=== PATIENT | male | born 1960 | race Caucasian/White ===

== ENCOUNTER 2016-07-06 16:19 | Emergency (ER) | payer OTHER, MEDICARE ==
[~2016-07-06] VITALS: Ht 157.5 cm; Wt 65.8 kg
[~2016-07-06 16:19] MED LIST: AMARYL4 M1 PO; AMLODIPINE BESY10 M1 PO; ARIPIPRAZOLE5 M1 PO; ATORVASTATIN CA10 M1 PO; BISCOLAX10 M1 PR; CAL-GEST200 MG PO; CRESTOR5 M1 PO; DIVALPROEX SOD500 M2 PO; FEVERALL650 M1 PR; GLIPIZIDE ER10 M1 PO; GLUCOPHAGE1000 M1 PO; LANTUS SOL100 UNIT/1 SC; LEVEMIR FL100 UNIT/1 SC; LEVEMIR100 UNIT/1 SC; LISINOPRIL10 M1 PO; LOSARTAN POTAS100 M1 PO; METFORMIN HCL1000 M1 PO; MILK OF MA400 MG/52 PO; MIRTAZAPINE7.5 M1 PO; NOVOLOG FL100 UNIT/1; NOVOLOG100 UNIT/2 SC; PIOGLITAZONE HC30 M1 PO; TANZEUM30 MG/0.5 SC; TRADJENTA5 M1 PO; TRAZODONE HCL50 M1 PO; TYLENOL325 M1 PO
--- NOTE | 2016-07-06 16:23 | ED GENERAL ADULT ---
See Addendum History of Present Illness General Chief Complaint: Fall Stated Complaint: BIBA WITH A FALL Source: patient Exam Limitations: poor historian Vital Signs & Intake/Output Vital Signs & Intake/Output Vital Signs Date Time Temp Pulse Resp B/P B/P Pulse O2 O2 Flow FiO2 Mean Ox Delivery Rate 07/06 2009 96.7 79 20 157/81 99 Room Air 07/06 1632 97.0 88 18 153/87 100 Room Air Allergies Coded Allergies: NO KNOWN ALLERGIES (01/31/11) Reconcile Medications Acetaminophen (Tylenol) 325 MG TABLET 2 TAB PO Q4 HRS NEEDED PRN PAIN ( Reported) Acetaminophen (Acephen) 650 MG SUPP.RECT 1 SUPP MS Q4H PRN PAIN/TEMP>101 ( Reported) Amlodipine Besylate 10 MG TABLET 1 TAB PO DAILY HEART (Reported) Aspirin (Ecotrin*) 81 MG TABLET.DR 1 TAB PO DAILY HEART/BLOOD (Reported) Atorvastatin Calcium 10 MG TABLET 0.5 TAB PO DAILY CHOLESTEROL (Reported) Bisacodyl (Biscolax) 10 MG SUPP.RECT 1 SUPP MS DAILY NEEDED PRN CONSTIPATION (Reported) Calcium (Elemental-Fr Calcarb) (Smooth Dissolving Antacid) 300 MG CALCIUM (750 MG) TAB.CHEW 1 TAB PO Q4H PRN GI (Reported) Dextrose (Glucose) 4 GRAM TAB.CHEW 1 TAB PO AD PRN HYPOGLYCEMIA (Reported) Divalproex Sodium 500 MG TABLET.DR 2 TAB PO BID SEIZURES (Reported) Ergocalciferol (Vitamin D2) (Vitamin D2) 50,000 UNIT CAPSULE 1 CAP PO QTUES SUPPLEMENT (Reported) Ferrous Sulfate 325 MG (65 MG IRON) TABLET 1 TAB PO BID SUPPLEMENT (Reported) Folic Acid 1 MG TABLET 1 TAB PO DAILY SUPPLEMENT (Reported) Glucagon,Human Recombinant (Glucagon Emergency Kit) 1 MG KIT 1 MG IM AD HYPOGLYCEMIA (Reported) Insulin Glargine,Hum.rec.anlog (Lantus Solostar) 100 UNIT/ML (3 ML) INSULN.PEN 6 UNITS SC QAM DM (Reported) Insulin Lispro (Humalog) 100 UNIT/ML VIAL 5 UNITS SC TID DM (Reported) Lactulose 10 GRAM/15 ML SOLUTION 30 ML PO BID UNKNOWN (Reported) Linagliptin (Tradjenta) 5 MG TABLET 1 TAB PO DAILY DM (Reported) Magnesium Hydroxide (Milk Of Magnesia) 400 MG/5 ML ORAL.SUSP 30 ML PO QHS PRN CONSTIPATION (Reported) Risperidone (Risperdal) 0.5 MG TABLET 1 TAB PO BID AGITATION (Reported) Risperidone 0.5 MG TABLET 1 TAB PO Q6H PRN AGITATION (Reported) Risperidone 1 MG TABLET 1 TAB PO QPM AGITATION (Reported) Sennosides/Docusate Sodium (Docusate Sodium-Senna Tablet) 8.6 MG-50 MG TABLET 1 TAB PO QHS GI (Reported) Triage Nurses Notes Reviewed? yes Onset: Abrupt Duration: day(s): Timing: recent history HPI: 07/06/18 5:10 PM 56-year-old male with a past medical history of traumatic brain injury presents to the emergency department after falling out of his wheelchair. He says that he was trying to transfer felt weak and fell right out of his wheelchair. He says he struck his head. He complains of a headache and also some neck pain. He also states that he has pain in his right shoulder and his right wrist. He denies abdominal pain or other complaints. The onset of the symptoms were abrupt, the duration was just today, the severity is significant; as his symptoms required him to come to the emergency department for care. Past History Travel History Traveled to [place] past 21 day No Medical History Any Pertinent Medical History? 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 Hx Contributory? No Review of Systems Review of Systems Constitutional: Denies: fever. EENTM: Reports: no symptoms. Respiratory: Denies: short of breath. Cardiovascular: Denies: chest pain. GI: Denies: abdominal pain. Genitourinary: Reports: no symptoms. Musculoskeletal: Reports: see HPI. Skin: Denies: rash. Neurological/Psychological: Reports: headache. Hematologic/Endocrine: Reports: bruising. Immunologic/Allergic: Reports: no symptoms. Physical Exam Physical Exam General Appearance: well developed/nourished, alert, awake, anxious Head: evidence of injury Eyes: Bilateral: normal appearance, PERRL, EOMI. Ears, Nose, Throat: normal pharynx Neck: tender lateral Respiratory: normal breath sounds, chest non-tender, no respiratory distress Cardiovascular: regular rate/rhythm Gastrointestinal: soft, non-tender Back: decreased range of motion Extremities: pedal edema, tenderness Neurologic/Psych: awake, alert, oriented x 3 Skin: warm/dry Comments: The patient has global lower extremity weakness. He has tenderness to the right shoulder also to the right wrist. Soft tissue swelling to the occipital area. Core Measures ACS in differential dx? No CVA/TIA Diagnosis: No Severe Sepsis Present: No Septic Shock Present: No Progress Differential Diagnoses I considered the following diagnoses in my evaluation of the patient: [Anemia, electrolyte derangement, dysrhythmia, dehydration, hypoglycemia, diabetic ketoacidosis, ICB] Plan of Care: Orders Procedure Date/time Status Heart Healthy Diet 07/07 B Active URINALYSIS 07/06 175 Complete TROPONIN LEVEL 07/07 1711 Complete COMPREHENSIVE METABOLIC PANEL 07/07 1711 Complete CBC WITHOUT DIFFERENTIAL 07/07 1711 Complete EKG 07/07 1711 Active Laboratory Tests 07/06/16 1800: Urine Color YEL, Urine Clarity CLEAR, Urine pH 6.0, Ur Specific [place] 1.020, Urine Protein 100 H, Urine Ketones NEG, Urine Nitrite NEG, Urine Bilirubin NEG, Urine Urobilinogen 0.2, Ur Leukocyte Esterase NEG, Ur Microscopic SEDIMENT EXAMINED, Urine RBC RARE, Urine WBC RARE, Urine Bacteria FEW H, Urine Hemoglobin TRACE-INTACT H, Urine Glucose NEG 07/06/16 1735: Anion Gap 9, Estimated GFR 49 L, BUN/Creatinine Ratio 16.0, Glucose 55 L, Calcium 9.9, Total Bilirubin 0.3, AST 17, ALT 28, Alkaline Phosphatase 110, Troponin I < 0.01, Total Protein 6.5, Albumin 3.7, Globulin 2.8, Albumin/ Globulin Ratio 1.3, CBC w Diff NO MAN DIFF REQ, RBC 3.64 L, MCV 93.8, MCH 31.4 H, RDW 14.4, MPV 8.9, Gran % 54.5, Lymphocytes % 30.8, Monocytes % 12.0 H, Eosinophils % 2.2, Basophils % 0.5, Absolute Granulocytes 5.8, Absolute Lymphocytes 3.3, Absolute Monocytes 1.3 H, Absolute Eosinophils 0.2, Absolute Basophils 0.1, PUBS MCHC 33.5 Initial ED EKG: NSR, no ST T wave changes Prior EKG: unchanged Departure Departure Disposition: ACUTE REHAB FACILITY Condition: Stable Clinical Impression Primary Impression: Head injury Secondary Impressions: Hypoglycemia, TBI (traumatic brain injury) Referrals: EDOUARD CHACKO MD (PCP/Family) Departure Forms: Customer Survey General Discharge Information Comments The patient will follow-up with Dr. Chacko in the next 72 hours. They will check his fingerstick every 6 hours. PATIENT: LYNETTE RAMOS PRESENT AGE: 56 PATIENT ACCOUNT NO: [id number] : 62 LOCATION: [facility] ORDERING PHYSICIAN: TESS RICKETTS DO SERVICE DATE: 07/06/16 EXAM TYPE: RAD - XRY-SHOULDER COMPLETE-RIGHT; XRY-WRIST COMPLETE-RIGHT EXAMINATION: XR SHOULDER, RIGHT XR WRIST, RIGHT CLINICAL INFORMATION: Fall. Pain. COMPARISON: None TECHNIQUE: 3 views of the right shoulder. 4 views of the right wrist. CT scan of the head and neck were unchanged. No acute fractures on the right shoulder, right wrist. Labs essentially unremarkable other than hypoglycemia. EKG was unchanged. FINDINGS: Right shoulder: The bones are osteopenic. No fracture or dislocation. The humeral head articulates appropriately with the glenoid. The acromioclavicular joint is intact. The visualized lung is clear. There is a chronic healed right lateral ninth rib fracture. Right wrist: The bones are osteopenic. No fracture or dislocation. The carpal rows are appropriately aligned. Vascular calcifications are present. IMPRESSION: No acute fracture or malalignment of the right wrist or shoulder. Osteopenia. DICTATED BY: MAKENNA MAY MD DATE/TIME DICTATED:07/06/161808 SCHOOL TREASURER:SATNAM DATE/TIME TRANSCRIBED:07/06/161808 CONFIDENTIAL, DO NOT COPY WITHOUT APPROPRIATE AUTHORIZATION. <Electronically signed in Other Vendor System> SIGNED BY: MAKENNA MAY MD 07/06 1813 Critical Care Note Critical Care Note Critical Care Time: non-applicable
[2016-07-06 18:07] LABS: ABSOLUTE BASOPHIL COUNT 0.1 /CUMM (0.0-0.2); ABSOLUTE EOSINOPHIL COUNT 0.2 /CUMM (0.0-0.7); ABSOLUTE GRANULOCYTE CT 5.8 /CUMM (1.4-6.5); ABSOLUTE LYMPH COUNT 3.3 /CUMM (1.2-3.4); ABSOLUTE MONOCYTE COUNT 1.3 /CUMM (0.10-0.60); BASOPHIL % 0.5 % (0.0-2.0); EOSINOPHIL % 2.2 % (0-5); GRANULOCYTE % 54.5 % (42.2-75.2); HEMATOCRIT 34.2 % (42-52); MEAN CORPUSCULAR HGB 31.4 PG (27.0-31.0); MEAN CORPUSCULAR HGB CONC 33.5 G/DL (33.0-37.0); MEAN CORPUSCULAR VOLUME 93.8 FL (80.0-94.0); MEAN PLATELET VOLUME 8.9 FL (7.4-10.4); PLATELET COUNT 363 /CUMM (130-400); RBC DISTRIBUTION WIDTH 14.4 % (11.5-14.5); RED BLOOD CELL CT 3.64 /CUMM (4.70-6.10); WHITE BLOOD CELL COUNT 10.6 /CUMM (4.8-10.8)
--- NOTE | 2016-07-06 18:15 | CT SCAN REPORT ---
EXAMINATION: CT HEAD WITHOUT CONTRAST CT CERVICAL SPINE WITHOUT CONTRAST CLINICAL INFORMATION: Fall. Injury. COMPARISON: CT head 01/31/2011, 12/05/2015 TECHNIQUE: Imaging was performed from the skull base to vertex without intravenous administration of contrast. In addition, helical noncontrast CT imaging was acquired through the cervical spine and source images were reviewed along with axial reconstructions and sagittal and coronal MPRs. DLP: 924.96 mGy-cm FINDINGS: HEAD: Status post right frontal craniotomy. Marked atrophy of the inferior frontal lobes with thinning of cortex marked hypodensity the periventricular white matter similar to prior CAT scan. Similar severe atrophic changes seen of the right temporal lobe. There is chronic atrophy also the remainder the brain but the frontal lobes and the right temporal lobe are most significantly affected. The dilatation of the ventricular system has progressed since the CAT scan of 01/31/2011 but is similar to the CAT scan of 12/05/2015. No acute intracranial abnormality. No intracranial mass, hemorrhage, or midline shift is visualized. No skull fracture. The paranasal sinuses and mastoid air cells are well aerated. CERVICAL SPINE: No fracture. No subluxation. No prevertebral soft tissue swelling. There is degenerative disc disease. There is cervical disc height narrowing at C4-C5 through the C7-T1 disc levels. Mild degenerative change of facet joints most notable at upper cervical spine. There is a left paracentral disc protrusion at C6-C7 slightly impressing the anterior left thecal sac. There is mild circumferential bulging of the C5-C6 disc. There is posterior spurs at the endplates at C5-C6 slightly encroaching into the right neural foramina. IMPRESSION: 1. No acute intracranial pathology. 2. No CT evidence of acute cervical spine fracture or traumatic subluxation 3. Degenerative spondylosis of cervical spine. Left paracentral disc protrusion C6-C7.
--- NOTE | 2016-07-06 18:15 | RADIOLOGY REPORT ---
EXAMINATION: XR SHOULDER, RIGHT XR WRIST, RIGHT CLINICAL INFORMATION: Fall. Pain. COMPARISON: None TECHNIQUE: 3 views of the right shoulder. 4 views of the right wrist. FINDINGS: Right shoulder: The bones are osteopenic. No fracture or dislocation. The humeral head articulates appropriately with the glenoid. The acromioclavicular joint is intact. The visualized lung is clear. There is a chronic healed right lateral ninth rib fracture. Right wrist: The bones are osteopenic. No fracture or dislocation. The carpal rows are appropriately aligned. Vascular calcifications are present. IMPRESSION: No acute fracture or malalignment of the right wrist or shoulder. Osteopenia.
--- NOTE | 2016-07-06 18:20 | RADIOLOGY REPORT ---
EXAMINATION: XR CHEST CLINICAL INFORMATION: Fall. Pain. COMPARISON: 12/05/2015 TECHNIQUE: 2 views of the chest were obtained. FINDINGS: Low lung volumes. No consolidation, edema, or effusion. No pneumothorax. The cardiomediastinal silhouette is within normal limits. No acute osseous abnormality. The bones are osteopenic. There is a sclerotic appearance at the mid diaphysis of the right humerus with no definite associated cortical irregularity. This finding is nonspecific. IMPRESSION: No acute pulmonary findings. Osteopenia with area of sclerosis at the mid humeral diaphysis. This is a nonspecific finding. Correlate for any history of malignancy. A metastatic lesion could have this appearance. Myeloma is also a consideration. Prior chest radiographs did not fully include this area for complete comparison. Dedicated humeral radiographs could be considered to further evaluate.
[2016-07-06] MEDS ORDERED: FOLIC ACID1 M1 PO (18:42)
[2016-07-06] MEDS ORDERED: FERROUS SULFAT325 M3 PO (18:42)
[2016-07-06] MEDS ORDERED: TRADJENTA5 M1 PO (18:43)
[2016-07-06] MEDS ORDERED: ASPIRIN EC81 M1 PO (18:43)
[2016-07-06] MEDS ORDERED: LACTULOSE10 GM/153 PO (18:43)
[2016-07-06] MEDS ORDERED: VITAMIN D250000 UNIT PO (18:44)
[2016-07-06] MEDS ORDERED: ACEPHEN650 M1 PR (18:46)
[2016-07-06] MEDS ORDERED: [UNRECOGNIZED DRUG - OTHER] PO (18:47)
[2016-07-06] MEDS ORDERED: GLUCOSE PO (18:48)
[2016-07-06] MEDS ORDERED: GLUCAGON EMERGEN1 M1 IM (18:48)
[2016-07-06] MEDS ORDERED: HUMALOG100 UNIT/2 SC (18:50)
[2016-07-06] MEDS ORDERED: RISPERDAL0.5 M1 PO (18:51)
[2016-07-06] MEDS ORDERED: RISPERIDONE0.5 M1 PO (18:51)
[2016-07-06] MEDS ORDERED: RISPERIDONE1 M1 PO (18:52)
[2016-07-06] MEDS ORDERED: LANTUS SOL100 UNIT/1 SC (18:53)
[2016-07-06] MEDS ORDERED: DOCUSATE SODIU1 EACH PO (18:53)
[2016-07-06 20:10] VITALS: BP 157/81
== END 2016-07-06 20:10 ==
LOC: ERH 16:19
PROVIDERS: Emergency Medicine
DX: S09.90XA Unspecified injury of head, initial encounter (principal); S06.9X0A Unspecified intracranial injury without loss of consciousness, initial encounter; E11.649 Type 2 diabetes mellitus with hypoglycemia without coma; W05.0XXA Fall from non-moving wheelchair, initial encounter
CPT/HCPCS: 73030-RT; 73110-RT; 81001; 93005; 93010